=== PATIENT | female | born 1980 | race Caucasian/White ===

== ENCOUNTER 2016-09-17 13:45 | Observation (INO) | payer OTHER ==
[~2016-09-17] VITALS: Ht 165.1 cm; Wt 113.4 kg
[~2016-09-17 13:45] MED LIST: ESOM40CA PO
[2016-09-17 14:58] VITALS: BP 118/66; PULSE 94; RESP 18; TEMP 97.8
[2016-09-17] MEDS ORDERED: TERBUTALINE SULFATE 1 MG/ML VIAL SUBCUT ONE (15:00)
[2016-09-17] MEDS ORDERED: TERBUTALINE SULFATE 1 MG/ML VIAL ONE (15:08)
[2016-09-17] MEDS ORDERED: PROMETHAZINE HCL 25 MG/ML AMP IM ONE (16:15)
[2016-09-17] MEDS ORDERED: MORPHINE SULFATE 10 MG/ML VIAL IM ONE (16:15)
== END 2016-09-17 17:30 | disposition home or self-care (01) ==
LOC: INTOOBSV 13:45 → SPU 13:45
PROVIDERS: ADMIT Specialist; ATTEND Specialist
DX: O62.9 Abnormality of forces of labor, unspecified (principal); Z3A.32 32 weeks gestation of pregnancy
CPT/HCPCS: 81002; 96372; G0378; J2270; J2550; J3105; 59899

== ENCOUNTER 2016-10-03 22:15 | Observation (INO) | payer OTHER ==
[~2016-10-03] VITALS: Ht 165.1 cm; Wt 112.0 kg
[2016-10-03] MEDS ORDERED: MORPHINE SULFATE 10 MG/ML VIAL IM ONE (23:30)
[2016-10-03 23:56] LABS: BASOPHILS % (AUTO) 0.2 % (0.0-2.0); EOSINOPHILS # (AUTO) 0.1 K/uL (0.0-0.4); EOSINOPHILS % (AUTO) 1.2 % (0.0-4.0); HEMATOCRIT 32.9 % (36-48); HEMOGLOBIN 11.1 g/dL (12.0-16.0); LYMPHOCYTES # (AUTO) 2.5 K/uL (1.0-5.5); LYMPHOCYTES % (AUTO) 21.8 % (20.5-51.5); MEAN CORPUSCULAR HEMOGLOBIN 27 pg (27-31); MEAN CORPUSCULAR HGB CONC 34 % (32-36); MEAN CORPUSCULAR VOLUME 79 fL (79.0-98.0); MONOCYTES # (AUTO) 0.5 K/uL (0.0-1.0); MONOCYTES % (AUTO) 4.7 % (1.7-9.3); NEUTROPHILS # (AUTO) 8.6 K/uL (1.8-7.7); NEUTROPHILS % (AUTO) 72.1 % (40.0-70.0); PLATELET COUNT (AUTO) 246 K/uL (130-430); RED CELL DISTRIBUTION WIDTH 13.2 % (9.0-15.0); WHITE BLOOD COUNT (AUTO) 11.7 K/uL (4.8-10.8)
[2016-10-04 00:15] LABS: CALCIUM 8.8 mg/dL (8.4-11.0); CREATININE 0.6 mg/dL (0.55-1.30); POTASSIUM 3.6 mmol/L (3.5-5.1)
[2016-10-04 00:20] LABS: ALBUMIN 2.5 g/dL (3.4-4.8); TOTAL BILIRUBIN 0.4 mg/dL (0.0-1.0); TOTAL PROTEIN, SERUM 6.8 g/dL (6.4-8.3)
== END 2016-10-04 01:54 | disposition home or self-care (01) ==
LOC: SPU 22:15
PROVIDERS: ADMIT Specialist; ATTEND Specialist
DX: O26.893 Other specified pregnancy related conditions, third trimester (principal); M54.9 Dorsalgia, unspecified; R10.9 Unspecified abdominal pain; Z3A.35 35 weeks gestation of pregnancy
CPT/HCPCS: 36415; 76770; 76805; 80053; 81002; 85025; G0378; J3410

== ENCOUNTER 2016-10-29 15:00 | Inpatient (IN) | payer OTHER ==
[~2016-10-29] VITALS: Ht 165.1 cm; Wt 111.6 kg
[~2016-10-29 15:00] MED LIST changes: +BUPIVACAINE /PF 0.25% 30 ML VIAL INJ ONE; +CLINDAMYCIN PHOSPHATE 900 mg/50mL D5W IV ONE; -ESOM40CA PO; +LR 1,000 ML IV.SOLN IV ONE; +MORPHINE SULFATE 10MG/10ML PF AMP ONE; +NS IRRIG SOLN 5000 ML IR ONE
[2016-10-29] MEDS ORDERED: CLINDAMYCIN 900 mg/50mL D5W 50 ML IV ONE (16:00)
[2016-10-29 16:24] LABS: BASOPHILS % (AUTO) 0.2 % (0.0-2.0); EOSINOPHILS # (AUTO) 0.1 K/uL (0.0-0.4); EOSINOPHILS % (AUTO) 0.7 % (0.0-4.0); HEMOGLOBIN 11.6 g/dL (12.0-16.0); LYMPHOCYTES # (AUTO) 2.2 K/uL (1.0-5.5); LYMPHOCYTES % (AUTO) 17.2 % (20.5-51.5); MEAN CORPUSCULAR HEMOGLOBIN 27 pg (27-31); MEAN CORPUSCULAR HGB CONC 34 % (32-36); MEAN CORPUSCULAR VOLUME 78 fL (79.0-98.0); MONOCYTES # (AUTO) 0.6 K/uL (0.0-1.0); MONOCYTES % (AUTO) 4.7 % (1.7-9.3); NEUTROPHILS # (AUTO) 10.1 K/uL (1.8-7.7); NEUTROPHILS % (AUTO) 77.2 % (40.0-70.0); PLATELET COUNT (AUTO) 254 K/uL (130-430); RED BLOOD CELL COUNT(AUTO) 4.36 MIL/uL (4.2-6.2); RED CELL DISTRIBUTION WIDTH 13.9 % (9.0-15.0); WHITE BLOOD COUNT (AUTO) 13.1 K/uL (4.8-10.8)
[2016-10-29] MEDS ORDERED: LR 1,000 ML IV SCH ×2 (18:25→19:06)
[2016-10-29] MEDS ORDERED: MEPERIDINE HCL/PF 25 MG/ML DISP.SYRIN IVP PRN ×2 (18:30)
[2016-10-29] MEDS ORDERED: KETOROLAC TROMETHAMINE 30 MG VIAL IVP PRN ×2 (18:30→19:15)
[2016-10-29] MEDS ORDERED: HYDROmorphone 2 MG/ML VIAL IVP PRN ×2 (18:30)
[2016-10-29] MEDS ORDERED: ONDANSETRON HCL 4 MG/2 ML VIAL IVP PRN ×2 (18:30)
[2016-10-29] MEDS ORDERED: HYDROmorphone 1 MG INJ. 1 MG/ML AMPUL IVP PRN ×2 (18:30)
[2016-10-29] MEDS ORDERED: MORPHINE SULFATE 10MG/10ML PF AMP SP SCH (18:30)
[2016-10-29] MEDS ORDERED: NALBUPHINE HCL 10 MG/ML AMP IVP PRN (18:30)
[2016-10-29] MEDS ORDERED: NALOXONE HCL 0.4 MG/ML AMP (NARCAN) IVP PRN (18:30)
[2016-10-29 19:05] VITALS: BP_SYST 112
[2016-10-29] MEDS ORDERED: OXYTOCIN/NORMAL SALINE 1,000 ML IV ONE ×2 (19:06→23:49)
[2016-10-29] MEDS ORDERED: SENNOSIDES/DOCUSATE SODIUM 1 TAB TABLET(SENOKOT-S) PO PRN (19:15)
[2016-10-29] MEDS ORDERED: LANOLIN 7 GM OINT. TP PRN (19:15)
[2016-10-29] MEDS ORDERED: BISACODYL 10 MG/SUPPOSITORY RC PRN (19:15)
[2016-10-29] MEDS ORDERED: RHO(D) IMMUNE GLOBULIN/MALTOSE 1500 UNITS/1.3 ML (WINHRO) IM PRN (19:15)
[2016-10-29] MEDS ORDERED: ANUSOL 1 EA SUPP.RECT (PREPARATION H) RC PRN (19:15)
[2016-10-29] MEDS ORDERED: MEASLES,MUMPS&RUBELLA VACC/PF 12500 UNIT/0.5 ML VIAL SUBQ PRN (19:15)
[2016-10-29] MEDS ORDERED: OXYCODONE/ACETAMINOPHEN 5-325 TABLET PO PRN (19:15)
[2016-10-29] MEDS ORDERED: CLINDAMYCIN 600 mg/50mL D5W 50 ML IV SCH (19:15)
[2016-10-29] MEDS: DIPHENHYDRAMINE INJ 50 MG/ML VIAL IVP PRN (19:22)
[2016-10-29] MEDS ORDERED: DIPHENHYDRAMINE INJ 50 MG/ML VIAL ONE (19:27)
[2016-10-29 20:33] LABS: BILIRUBIN,URINE NEGATIVE (NEGATIVE); CLARITY/URINE SL HAZY (CLEAR); COLOR,URINE YELLOW (YELLOW); GLUCOSE,URINE NEGATIVE (NEGATIVE); KETONES,URINE NEGATIVE (NEGATIVE); LEUKOCYTE ESTERASE ,URINE TRACE (NEGATIVE); NITRITE, URINE NEGATIVE (NEGATIVE); PH,URINE 6.5 (5.0-8.0); PROTEIN URINE NEGATIVE (NEGATIVE)
[2016-10-29 20:35] LABS: BLOOD, URINE TRACE (NEGATIVE)
[2016-10-29 20:43] LABS: BACTERIA,URINE MODERATE /HPF (None Seen)
[2016-10-29] MEDS ORDERED: TEMAZEPAM 15 MG CAPSULE PO PRN (21:00)
[2016-10-30] MEDS ORDERED: CLINDAMYCIN 900 MG in D5W 100 ML IV SCH (00:01)
[2016-10-30] MEDS: KETOROLAC TROMETHAMINE 30 MG VIAL IVP PRN ×2 (00:03→06:06)
[2016-10-30 06:39] LABS: BASOPHILS # (AUTO) 0.1 K/uL (0.0-0.2); BASOPHILS % (AUTO) 0.7 % (0.0-2.0); EOSINOPHILS # (AUTO) 0.1 K/uL (0.0-0.4); EOSINOPHILS % (AUTO) 0.7 % (0.0-4.0); HEMATOCRIT 31.9 % (36-48); HEMOGLOBIN 10.7 g/dL (12.0-16.0); LYMPHOCYTES # (AUTO) 2.1 K/uL (1.0-5.5); LYMPHOCYTES % (AUTO) 15.4 % (20.5-51.5); MEAN CORPUSCULAR HEMOGLOBIN 26 pg (27-31); MEAN CORPUSCULAR HGB CONC 34 % (32-36); MEAN CORPUSCULAR VOLUME 79 fL (79.0-98.0); MONOCYTES # (AUTO) 0.6 K/uL (0.0-1.0); MONOCYTES % (AUTO) 4.4 % (1.7-9.3); NEUTROPHILS # (AUTO) 10.7 K/uL (1.8-7.7); NEUTROPHILS % (AUTO) 78.8 % (40.0-70.0); PLATELET COUNT (AUTO) 231 K/uL (130-430); RED BLOOD CELL COUNT(AUTO) 4.05 MIL/uL (4.2-6.2); WHITE BLOOD COUNT (AUTO) 13.6 K/uL (4.8-10.8)
[2016-10-30] MEDS ORDERED: CLINDAMYCIN 900 mg/50mL D5W 50 ML IV ONE (08:27)
[2016-10-30] MEDS: DIPHENHYDRAMINE INJ 50 MG/ML VIAL IVP PRN ×2 (09:23→13:37)
[2016-10-30] MEDS ORDERED: KETOROLAC TROMETHAMINE 30 MG VIAL ONE (12:50)
[2016-10-30] MEDS: IBUPROFEN 600 MG TABLET PO SCH (17:37)
[2016-10-31] MEDS: DOCUSATE SODIUM 100 MG CAPSULE PO PRN ×2 (09:05→22:18)
[2016-10-31] MEDS: SIMETHICONE 80 MG TAB.CHEW PO PRN ×4 (09:05→22:17)
[2016-10-31] MEDS: OXYCODONE/ACETAMINOPHEN 5-325 TABLET PO PRN ×3 (09:05→14:37)
[2016-10-31] MEDS: IBUPROFEN 600 MG TABLET PO SCH ×2 (13:02→18:49)
[2016-10-31] MEDS: HYDROcodone/ACETAMIN 5-325 MG TAB (NORCO/ VICODIN) PO PRN ×2 (16:37→22:18)
[2016-11-01] MEDS: IBUPROFEN 600 MG TABLET PO SCH ×2 (05:52→11:58)
[2016-11-01] MEDS: HYDROcodone/ACETAMIN 5-325 MG TAB (NORCO/ VICODIN) PO PRN ×2 (05:54→11:58)
[2016-11-01] MEDS: SIMETHICONE 80 MG TAB.CHEW PO PRN (09:31)
[2016-11-01] MEDS: DOCUSATE SODIUM 100 MG CAPSULE PO PRN (09:31)
== END 2016-11-01 12:30 | disposition home or self-care (01) | DRG 766 ==
LOC: SPU 15:00
PROVIDERS: ADMIT Specialist; ATTEND Specialist
PROC: 0UB70ZZ Excision of Bilateral Fallopian Tubes, Open Approach (ICD-10-PCS; 2016-10-29)
PROC: 10D00Z1 Extraction of Products of Conception, Low, Open Approach (ICD-10-PCS; principal; 2016-10-29 18:00)
DX: O32.1XX0 Maternal care for breech presentation, not applicable or unspecified (principal); O32.2XX0 Maternal care for transverse and oblique lie, not applicable or unspecified; Z37.0 Single live birth; Z30.2 Encounter for sterilization; Z3A.38 38 weeks gestation of pregnancy; Z23 Encounter for immunization
CPT/HCPCS: 36415; 81000-TC; 85025; 86592; 86886; 86900; 86901; 88302; 88305; 88307; 94760; J1200; J1885; J2274; J2590; J3490; J7060; J7120

== ENCOUNTER 2017-01-17 11:23 | Outpatient (CLI) | payer OTHER ==
[2017-01-17 11:49] LABS: BASOPHILS % (AUTO) 0.3 % (0.0-2.0); EOSINOPHILS # (AUTO) 0.2 K/uL (0.0-0.4); EOSINOPHILS % (AUTO) 2.3 % (0.0-4.0); HEMATOCRIT 37.3 % (36-48); HEMOGLOBIN 12.3 g/dL (12.0-16.0); LYMPHOCYTES % (AUTO) 32.3 % (20.5-51.5); MEAN CORPUSCULAR HEMOGLOBIN 26 pg (27-31); MEAN CORPUSCULAR HGB CONC 33 % (32-36); MEAN CORPUSCULAR VOLUME 78 fL (79.0-98.0); MONOCYTES # (AUTO) 0.4 K/uL (0.0-1.0); MONOCYTES % (AUTO) 4.4 % (1.7-9.3); NEUTROPHILS # (AUTO) 5.6 K/uL (1.8-7.7); NEUTROPHILS % (AUTO) 60.7 % (40.0-70.0); PLATELET COUNT (AUTO) 306 K/uL (130-430); RED BLOOD CELL COUNT(AUTO) 4.79 MIL/uL (4.2-6.2); RED CELL DISTRIBUTION WIDTH 15.9 % (9.0-15.0); WHITE BLOOD COUNT (AUTO) 9.3 K/uL (4.8-10.8)
== END 2017-01-17 20:52 | disposition home or self-care (01) ==
LOC: SLB 11:23
PROVIDERS: ATTEND Family Medicine
DX: K92.2 Gastrointestinal hemorrhage, unspecified (principal)
CPT/HCPCS: 36415; 85025

== ENCOUNTER 2017-02-27 19:05 | Emergency (ER) | payer OTHER ==
[~2017-02-27] VITALS: Ht 165.1 cm; Wt 98.9 kg
[2017-02-27 19:10] VITALS: BP_SYST 112
--- NOTE | 2017-02-27 19:27 | NUR ---
Patient to ER bed 08 to gown for evaluation. Side rails up. Report given to OLIVIA hRodes
--- NOTE | 2017-02-27 19:28 | NUR ---
PT [id number]. at bedside. Pt c/o of left knee pain that began last night. Pain begins at back of knee and runs down towards toe. Pt states pain has a pulling sensation, 8/10. Pt denies any nausea, vomiting, diarrhea or recent activity prior to onset of pain. VS stable, no signs of SOB or acute distress noted. Will continue to monitor.
[2017-02-27] MEDS ORDERED: ACETAMINOPHEN 500 MG TABLET PO ONE (19:30)
--- NOTE | 2017-02-27 19:35 | NUR ---
ALEXANDRU Diaz at bedside examining patient.
[2017-02-27 21:00] VITALS: BP_SYST 112
--- NOTE | 2017-02-27 21:00 | NUR ---
Patient given written and verbal discharge instructions and verbalizes understanding. ER MD discussed with patient the results and treatment provided. Patient in stable condition. ID arm band removed. Rx of Tylenol Extra strength given. Patient educated on pain management and to follow up with PMD in 2 days. Pain Scale 0/10 Opportunity for questions provided and answered.
== END 2017-02-27 21:00 | disposition home or self-care (01) ==
LOC: SED 19:05
DX: M25.562 Pain in left knee (principal); M79.662 Pain in left lower leg; Z88.1 Allergy status to other antibiotic agents
CPT/HCPCS: 81025; 93971; 99284

== ENCOUNTER 2017-03-17 07:33 | Day surgery (SDC) | payer OTHER ==
[~2017-03-17] VITALS: Ht 165.1 cm; Wt 98.4 kg
[2017-03-17 08:02] LABS: HCG,QUAL RESULT NEGATIVE (NEGATIVE)
[2017-03-17] MEDS ORDERED: MIDAZOLAM HCL 5 MG/5 ML VIAL ONE ×2 (08:37→08:38)
[2017-03-17] MEDS ORDERED: MEPERIDINE HCL/PF 100 MG/ML AMP ONE (08:37)
[2017-03-17] MEDS ORDERED: SIMETHICONE 40 MG/0.6 ML ML ONE ×2 (08:38→09:06)
[2017-03-17] MEDS: MEPERIDINE HCL/PF 100 MG/ML AMP ONE ×3 (09:01→09:05)
[2017-03-17] MEDS: MIDAZOLAM HCL 5 MG/5 ML VIAL ONE ×5 (09:01→09:09)
[2017-03-17] MEDS ORDERED: DIPHENHYDRAMINE INJ 50 MG/ML VIAL ONE (09:47)
[2017-03-17 09:52] VITALS: BP_SYST 114
[2017-03-17] MEDS ORDERED: DIPHENHYDRAMINE INJ 50 MG/ML VIAL IVP ONE (10:00)
== END 2017-03-17 12:40 | disposition home or self-care (01) ==
LOC: SDS 07:33 → SMU 07:48 → SDS 12:40
PROVIDERS: ATTEND Internal Medicine Gastroenterology
DX: K62.5 Hemorrhage of anus and rectum (principal); K64.8 Other hemorrhoids; Z88.0 Allergy status to penicillin; Z68.36 Body mass index [BMI] 36.0-36.9, adult; Z90.49 Acquired absence of other specified parts of digestive tract
CPT/HCPCS: 45378; 84703; 96365; J1200; J2175; J2250

== ENCOUNTER 2017-06-12 22:21 | Emergency (ER) | payer OTHER ==
[~2017-06-12] VITALS: Ht 165.1 cm; Wt 101.2 kg
[2017-06-12 22:35] VITALS: BP_SYST 126
[2017-06-12] MEDS ORDERED: NACL 0.9% 1,000 ML IV ONE (23:12)
[2017-06-12] MEDS ORDERED: KETOROLAC TROMETHAMINE 30 MG VIAL IVP ONE (23:15)
[2017-06-12] MEDS ORDERED: ONDANSETRON HCL 4 MG/2 ML VIAL IVP ONE (23:15)
[2017-06-12 23:19] LABS: BILIRUBIN,URINE NEGATIVE (NEGATIVE); CLARITY/URINE CLEAR (CLEAR); COLOR,URINE YELLOW (YELLOW); GLUCOSE,URINE NEGATIVE (NEGATIVE); KETONES,URINE NEGATIVE (NEGATIVE); LEUKOCYTE ESTERASE ,URINE NEGATIVE (NEGATIVE); NITRITE, URINE NEGATIVE (NEGATIVE); PH,URINE 6.5 (5.0-8.0); PROTEIN URINE NEGATIVE (NEGATIVE)
[2017-06-12 23:22] LABS: BLOOD, URINE TRACE (NEGATIVE)
[2017-06-12 23:23] LABS: BASOPHILS % (AUTO) 0.3 % (0.0-2.0); EOSINOPHILS # (AUTO) 0.3 K/uL (0.0-0.4); EOSINOPHILS % (AUTO) 2.8 % (0.0-4.0); HEMATOCRIT 35.7 % (36-48); LYMPHOCYTES # (AUTO) 3.2 K/uL (1.0-5.5); LYMPHOCYTES % (AUTO) 29.8 % (20.5-51.5); MEAN CORPUSCULAR HEMOGLOBIN 28 pg (27-31); MEAN CORPUSCULAR HGB CONC 34 % (32-36); MEAN CORPUSCULAR VOLUME 82 fL (79.0-98.0); MONOCYTES # (AUTO) 0.6 K/uL (0.0-1.0); MONOCYTES % (AUTO) 5.8 % (1.7-9.3); NEUTROPHILS # (AUTO) 6.6 K/uL (1.8-7.7); NEUTROPHILS % (AUTO) 61.3 % (40.0-70.0); PLATELET COUNT (AUTO) 287 K/uL (130-430); RED BLOOD CELL COUNT(AUTO) 4.34 MIL/uL (4.2-6.2); RED CELL DISTRIBUTION WIDTH 12.5 % (9.0-15.0); WHITE BLOOD COUNT (AUTO) 10.7 K/uL (4.8-10.8)
[2017-06-12 23:30] LABS: BACTERIA,URINE FEW /HPF (None Seen); CALCIUM 8.5 mg/dL (8.4-11.0); CREATININE 0.49 mg/dL (0.55-1.30); POTASSIUM 3.6 mmol/L (3.5-5.1); RBC,URINE 0-3 /HPF (0-3); WBC,URINE 0-3 /HPF (0-3)
[2017-06-12 23:34] LABS: ALBUMIN 3.6 g/dL (3.4-4.8); TOTAL BILIRUBIN 0.6 mg/dL (0.0-1.0)
[2017-06-13 00:56] VITALS: BP_SYST 122
== END 2017-06-13 00:56 | disposition home or self-care (01) ==
LOC: SED 22:21
DX: R10.31 Right lower quadrant pain (principal); R10.10 Upper abdominal pain, unspecified; Z90.49 Acquired absence of other specified parts of digestive tract; Z98.51 Tubal ligation status; Z88.1 Allergy status to other antibiotic agents
CPT/HCPCS: 36415; 74176; 80053; 81000; 81025; 83690; 85025; 96361; 96374; 96375; 99285; J1885; J2405; J7030

== ENCOUNTER 2018-07-31 23:02 | Emergency (ER) | payer MEDICAID, OTHER ==
[~2018-07-31] VITALS: Ht 165.1 cm; Wt 104.3 kg
[2018-07-31 23:10] VITALS: BP_SYST 119
[2018-07-31] MEDS ORDERED: ASPIRIN 81 MG TAB.CHEW PO ONE (23:45)
[2018-07-31] MEDS ORDERED: NITROGLYCERIN 0.4 MG TAB.SUBL SL ONE (23:45)
[2018-07-31] MEDS ORDERED: ONDANSETRON HCL 4 MG/2 ML VIAL IVP ONE (23:45)
[2018-08-01 00:07] LABS: BASOPHILS % (AUTO) 0.4 % (0.0-2.0); EOSINOPHILS # (AUTO) 0.2 K/uL (0.0-0.4); EOSINOPHILS % (AUTO) 2.4 % (0.0-4.0); HEMATOCRIT 35.5 % (36-48); HEMOGLOBIN 12.1 g/dL (12.0-16.0); LYMPHOCYTES # (AUTO) 3.3 K/uL (1.0-5.5); LYMPHOCYTES % (AUTO) 35.4 % (20.5-51.5); MEAN CORPUSCULAR HEMOGLOBIN 28 pg (27-31); MEAN CORPUSCULAR HGB CONC 34 % (32-36); MEAN CORPUSCULAR VOLUME 81 fL (79.0-98.0); MONOCYTES # (AUTO) 0.4 K/uL (0.0-1.0); MONOCYTES % (AUTO) 4.5 % (1.7-9.3); NEUTROPHILS # (AUTO) 5.4 K/uL (1.8-7.7); NEUTROPHILS % (AUTO) 57.3 % (40.0-70.0); PLATELET COUNT (AUTO) 296 K/uL (130-430); RED BLOOD CELL COUNT(AUTO) 4.37 MIL/uL (4.2-6.2); RED CELL DISTRIBUTION WIDTH 12.2 % (9.0-15.0); WHITE BLOOD COUNT (AUTO) 9.3 K/uL (4.8-10.8)
[2018-08-01 00:27] LABS: CALCIUM 8.5 mg/dL (8.4-11.0); CREATININE 0.59 mg/dL (0.55-1.30); POTASSIUM 3.5 mmol/L (3.5-5.1)
[2018-08-01] MEDS ORDERED: PANTOPRAZOLE SODIUM 40 MG/VIAL (PROTONIX) IVP ONE (00:30)
[2018-08-01] MEDS ORDERED: KETOROLAC TROMETHAMINE 30 MG VIAL IVP ONE (00:30)
[2018-08-01 00:31] LABS: PROTHROMBIN TIME 10.4 SECS (9.5-12.5)
[2018-08-01 00:42] LABS: ALBUMIN 3.3 g/dL (3.4-4.8); TOTAL BILIRUBIN 0.4 mg/dL (0.0-1.0)
[2018-08-01 01:10] VITALS: BP_SYST 118
== END 2018-08-01 01:10 | disposition home or self-care (01) ==
LOC: SED 23:02
DX: R07.89 Other chest pain (principal); Z90.49 Acquired absence of other specified parts of digestive tract; Z88.1 Allergy status to other antibiotic agents
CPT/HCPCS: 36415; 71045; 80053; 83880; 84484; 85025; 85610; 85730; 93005; 96374; 96375; 99284; C9113; J1885; J2405

== ENCOUNTER 2019-06-05 20:36 | Emergency (ER) | payer SELFPAY ==
[~2019-06-05] VITALS: Ht 165.1 cm; Wt 108.9 kg
[2019-06-05 20:40] VITALS: BP_SYST 142
[2019-06-05 21:18] LABS: BASOPHILS % (AUTO) 0.3 % (0.0-2.0); EOSINOPHILS # (AUTO) 0.2 K/uL (0.0-0.4); EOSINOPHILS % (AUTO) 2.6 % (0.0-4.0); HEMATOCRIT 37.7 % (36-48); HEMOGLOBIN 12.6 g/dL (12.0-16.0); LYMPHOCYTES # (AUTO) 1.7 K/uL (1.0-5.5); LYMPHOCYTES % (AUTO) 23.9 % (20.5-51.5); MEAN CORPUSCULAR HEMOGLOBIN 28 pg (27-31); MEAN CORPUSCULAR HGB CONC 33 % (32-36); MEAN CORPUSCULAR VOLUME 85 fL (79.0-98.0); MONOCYTES # (AUTO) 0.4 K/uL (0.0-1.0); MONOCYTES % (AUTO) 5.4 % (1.7-9.3); NEUTROPHILS # (AUTO) 4.9 K/uL (1.8-7.7); NEUTROPHILS % (AUTO) 67.8 % (40.0-70.0); PLATELET COUNT (AUTO) 280 K/uL (130-430); RED BLOOD CELL COUNT(AUTO) 4.45 MIL/uL (4.2-6.2); RED CELL DISTRIBUTION WIDTH 13.6 % (9.0-15.0); WHITE BLOOD COUNT (AUTO) 7.3 K/uL (4.8-10.8)
[2019-06-05 21:29] LABS: CALCIUM 8.8 mg/dL (8.4-11.0); CREATININE 0.69 mg/dL (0.55-1.30); POTASSIUM 3.5 mmol/L (3.5-5.1)
[2019-06-05] MEDS ORDERED: MAG HYDROX/AL HYDROX/SIMETH 30 ML, DICYCLOMINE HCL 20 MG, LIDOCAINE VISCOUS 2% 15ML (PO... PO ONE ×3 (21:30)
[2019-06-05] MEDS ORDERED: NACL 0.9% 1,000 ML IV ONE (21:30)
[2019-06-05] MEDS ORDERED: MORPHINE 4 MG/ML INJ. SYRINGE IVP ONE (21:30)
[2019-06-05] MEDS ORDERED: ONDANSETRON HCL 4 MG/2 ML VIAL IVP ONE (21:30)
[2019-06-05 21:35] LABS: ALBUMIN 3.3 g/dL (3.4-4.8); TOTAL BILIRUBIN 0.9 mg/dL (0.0-1.0)
[2019-06-05 21:52] LABS: BILIRUBIN,URINE NEGATIVE (NEGATIVE); CLARITY/URINE SL HAZY (CLEAR); COLOR,URINE YELLOW (YELLOW); GLUCOSE,URINE NEGATIVE (NEGATIVE); KETONES,URINE NEGATIVE (NEGATIVE); LEUKOCYTE ESTERASE ,URINE TRACE (NEGATIVE); NITRITE, URINE NEGATIVE (NEGATIVE); PROTEIN URINE NEGATIVE (NEGATIVE)
[2019-06-05 22:09] LABS: BLOOD, URINE TRACE (NEGATIVE)
[2019-06-05 22:14] LABS: BACTERIA,URINE FEW /HPF (None Seen); MUCUS,URINE 1+ /LPF (None Seen); RBC,URINE 0-3 /HPF (0-3)
[2019-06-05 22:59] VITALS: BP_SYST 135
== END 2019-06-05 22:59 | disposition home or self-care (01) ==
LOC: SED 20:36
DX: N39.0 Urinary tract infection, site not specified (principal); R11.10 Vomiting, unspecified; Z88.1 Allergy status to other antibiotic agents
CPT/HCPCS: 36415; 80053; 81000; 81025; 83690; 85025; 87086; 93005; 96361; 96374; 96375; 99284; J2001; J2270; J2405; J7030

== ENCOUNTER 2021-02-16 13:55 | Inpatient (IN) | payer SELFPAY ==
[~2021-02-16] VITALS: Ht 165.1 cm; Wt 115.7 kg
[2021-02-16 14:23] LABS: BASOPHILS # (AUTO) 0.1 K/uL (0.0-0.2); BASOPHILS % (AUTO) 0.5 % (0.0-2.0); EOSINOPHILS # (AUTO) 0.3 K/uL (0.0-0.4); EOSINOPHILS % (AUTO) 2.4 % (0.0-4.0); HEMATOCRIT 37.3 % (36-48); HEMOGLOBIN 12.4 g/dL (12.0-16.0); LYMPHOCYTES # (AUTO) 3.6 K/uL (1.0-5.5); LYMPHOCYTES % (AUTO) 33.7 % (20.5-51.5); MEAN CORPUSCULAR HEMOGLOBIN 27 pg (27-31); MEAN CORPUSCULAR HGB CONC 33 % (32-36); MEAN CORPUSCULAR VOLUME 82 fL (79.0-98.0); MONOCYTES # (AUTO) 0.5 K/uL (0.0-1.0); NEUTROPHILS # (AUTO) 6.2 K/uL (1.8-7.7); NEUTROPHILS % (AUTO) 58.4 % (40.0-70.0); PLATELET COUNT (AUTO) 276 K/uL (130-430); RED BLOOD CELL COUNT(AUTO) 4.53 MIL/uL (4.2-6.2); RED CELL DISTRIBUTION WIDTH 13.6 % (9.0-15.0); WHITE BLOOD COUNT (AUTO) 10.5 K/uL (4.8-10.8)
[2021-02-16] MEDS ORDERED: ASPIRIN 325 MG TABLET PO ONE (14:30)
[2021-02-16] MEDS ORDERED: ONDANSETRON HCL 4 MG/2 ML VIAL IVP ONE (14:30)
[2021-02-16] MEDS ORDERED: NITROGLYCERIN 0.4 MG TAB.SUBL SL ONE (14:30)
[2021-02-16 14:44] LABS: CREATININE 0.57 mg/dL (0.55-1.30); POTASSIUM 3.9 mmol/L (3.5-5.1)
[2021-02-16 14:50] LABS: ALBUMIN 3.5 g/dL (3.4-4.8); TOTAL BILIRUBIN 0.6 mg/dL (0.0-1.0)
[2021-02-16 14:53] VITALS: BP_SYST 149
[2021-02-16] MEDS ORDERED: ONDANSETRON 4 MG ODT TAB PO ONE (16:00)
[2021-02-16] MEDS ORDERED: MORPHINE 2 MG/ML INJ. SYRINGE IVP ONE (16:15)
[2021-02-16] MEDS ORDERED: TOPI50TA25 PO (17:45)
[2021-02-16] MEDS ORDERED: LEVO75TA7 PO (17:45)
[2021-02-16 18:15] VITALS: BP_SYST 141
[2021-02-16] MEDS ORDERED: MAG-AL HYDROX/SIMETH 30 ML UDC PO PRN (18:45)
[2021-02-16] MEDS ORDERED: ONDANSETRON HCL 4 MG/2 ML VIAL IVP PRN (18:45)
[2021-02-16] MEDS ORDERED: MORPHINE 2 MG/ML INJ. SYRINGE IVP PRN (18:45)
[2021-02-16] MEDS ORDERED: NALOXONE HCL 0.4 MG/ML AMP (NARCAN) IVP PRN (18:45)
[2021-02-16] MEDS ORDERED: MAG-AL HYDROX/SIMETH 30 ML UDC ONE (18:54)
[2021-02-16] MEDS ORDERED: ALPRAZolam 0.25 MG TABLET PO PRN (19:00)
[2021-02-16] MEDS ORDERED: PANTOPRAZOLE SODIUM 40 MG TAB PO ONE (19:15)
[2021-02-16] MEDS: ACETAMINOPHEN 500 MG TABLET PO PRN (20:51)
[2021-02-16 21:55] VITALS: BP_SYST 111
[2021-02-16 22:04] LABS: THYROID STIMULATING HORMONE 0.91 uIu/mL (0.36-3.74); URIC ACID 4.9 mg/dL (2.4-7.0)
[2021-02-17] VITALS: BP_SYST 112
[2021-02-17] MEDS: ACETAMINOPHEN 500 MG TABLET PO PRN (06:04)
[2021-02-17 07:06] LABS: BASOPHILS # (AUTO) 0.1 K/uL (0.0-0.2); BASOPHILS % (AUTO) 0.5 % (0.0-2.0); EOSINOPHILS # (AUTO) 0.3 K/uL (0.0-0.4); EOSINOPHILS % (AUTO) 2.8 % (0.0-4.0); HEMATOCRIT 36.4 % (36-48); HEMOGLOBIN 12.1 g/dL (12.0-16.0); LYMPHOCYTES # (AUTO) 3.2 K/uL (1.0-5.5); MEAN CORPUSCULAR HEMOGLOBIN 27 pg (27-31); MEAN CORPUSCULAR HGB CONC 33 % (32-36); MEAN CORPUSCULAR VOLUME 82 fL (79.0-98.0); MONOCYTES # (AUTO) 0.5 K/uL (0.0-1.0); MONOCYTES % (AUTO) 5.4 % (1.7-9.3); NEUTROPHILS # (AUTO) 5.4 K/uL (1.8-7.7); NEUTROPHILS % (AUTO) 57.3 % (40.0-70.0); PLATELET COUNT (AUTO) 259 K/uL (130-430); RED BLOOD CELL COUNT(AUTO) 4.44 MIL/uL (4.2-6.2); RED CELL DISTRIBUTION WIDTH 13.6 % (9.0-15.0); WHITE BLOOD COUNT (AUTO) 9.4 K/uL (4.8-10.8)
[2021-02-17 07:28] LABS: CALCIUM 8.7 mg/dL (8.4-11.0); CREATININE 0.69 mg/dL (0.55-1.30); POTASSIUM 3.7 mmol/L (3.5-5.1)
[2021-02-17 08:00] VITALS: BP_SYST 125
[2021-02-17] MEDS ORDERED: LEVOTHYROXINE SODIUM 0.075 MG TABLET PO ONE (09:00)
[2021-02-17] MEDS ORDERED: TOPIRAMATE 25 MG TABLET(TOPAMAX) PO SCH (09:00)
[2021-02-17] MEDS ORDERED: PANTOPRAZOLE SODIUM 40 MG TAB PO SCH (09:00)
[2021-02-17] MEDS: IBUPROFEN 600 MG TABLET PO PRN ×2 (09:09→17:00)
[2021-02-17 09:11] LABS: ERYTHROCYTE SEDIMENTATION RATE 33 MM/HR (0-20)
[2021-02-17 09:24] LABS: C-REACTIVE PROTEIN QUANT 1.2 mg/dL (0-0.5)
[2021-02-17 17:36] VITALS: BP_SYST 125
[2021-02-18] MEDS ORDERED: LEVOTHYROXINE SODIUM 0.075 MG TABLET PO SCH (07:00)
== END 2021-02-17 18:00 | disposition home or self-care (01) | DRG 313 ==
LOC: SED 13:55 → STU 17:39 → EEVIPCON 17:39 → STU 17:49
PROVIDERS: ADMIT Internal Medicine; ATTEND Internal Medicine
DX: R07.89 Other chest pain (principal); Z68.41 Body mass index [BMI] 40.0-44.9, adult; E03.9 Hypothyroidism, unspecified; E66.01 Morbid (severe) obesity due to excess calories; M13.842 Other specified arthritis, left hand; G43.909 Migraine, unspecified, not intractable, without status migrainosus; Z20.822 Contact with and (suspected) exposure to COVID-19; M79.642 Pain in left hand; Z71.3 Dietary counseling and surveillance; Z88.1 Allergy status to other antibiotic agents; Z88.8 Allergy status to other drugs, medicaments and biological substances
CPT/HCPCS: 36415; 71045; 80048; 80053; 80061; 83690; 83880; 84443; 84484; 84550; 85025; 85379; 85651-TC; 86140; 86431; 93306; 96374; 96375; 99285; G0378; J2270; J2405; Q0162